=== PATIENT | female | born 1940 | race Caucasian/White ===

== ENCOUNTER → 2017-05-12 | Outpatient (CLI) | payer OTHER, BC ==
--- NOTE | 2017-05-12 16:05 | DI ---
CT LOWER EXTR W/O CONTRAST,05/12/2017 10:39 AM: Clinical History: Arthritis of the right knee Previous Exam: None at this facility. Findings: Multiple helically acquired CT images are obtained through the entire right lower trauma the without contrast. Evaluation of the right hip demonstrates anatomic alignment without fractures. The surrounding soft t issues are unremarkable. Evaluation of the right knee demonstrates a right knee joint effusion. Tricompartment osteophyte formation is noted. There is diffuse osteopenia. Subchondral cyst formation is also noted. The surrounding musculature and subcutaneous fat is unremarkable. There are few subchondral cysts. Evaluation of the right ankle demonstrates diffuse osteopenia. There are no significant degenerative changes there is some mild enthesopathy at the insertion of the Achilles tendon and the plantar fasci a. The subtalar joints appear to be normal. The intertarsal joints are also unremarkable. Impression: 1. Degenerative changes of the hip knee and ankle much worse at the knee joint where there is a knee joint effusion and tricompartmental osteophyte formation.
== END ==
LOC: CT 10:34
PROVIDERS: ATTEND Orthopaedic Surgery
DX: M17.0 Bilateral primary osteoarthritis of knee (principal); M25.461 Effusion, right knee
CPT/HCPCS: 73700

== ENCOUNTER 2017-06-20 10:13 | Inpatient (IN) ==
[~2017-06-20 10:13] MED LIST: Acetaminophen 1000mg Inj 1,000 MG/100 ML VIAL IV PRN; Clindamycin 900mg (Premix) 900 MG/50 ML BAG IV ONE; DEXAMETHASONE PF 10 MG/1 ML VIAL IVP PRN; DIAZEPAM 10 MG TABLET SL PRN; LIDOCAINE W/ SODIUM BICARB 0.5 ML SYR ONE; LIDOCAINE W/ SODIUM BICARB 0.5 ML SYR SUBCUT ONE; LORazepam 2 MG/1 ML VIAL IVP PRN; Lactated Ringers 1,000 ML PRIMARY IV ONE; ONDANSETRON 4 MG/2 ML VIAL IVP PRN; SCOPOLAMINE HYDROBROMIDE 1.5 MG - 1 EACH PATCH TRANSDERM PRN; ceFAZolin Inj 2gm (Premix) 2 GM/50 ML BAG IV ONE
[2017-06-20] MEDS: Lactated Ringers 1,000 ML PRIMARY IV SCH ×2 (11:13→22:12)
[2017-06-20] MEDS ORDERED: Bacteriostatic NaCl Inj 30ml Vial ONE (12:01)
[2017-06-20] MEDS ORDERED: Gentamicin Inj 40 MG/ML VIAL ONE ×2 (12:01→16:31)
[2017-06-20] MEDS ORDERED: Sodium Chloride 0.9% vial 10 ML ONE (12:01)
[2017-06-20] MEDS ORDERED: BUPivacaine Liposome/PF (Exparel) Inj 20ml vial INFIL ONE ×2 (12:01→12:47)
[2017-06-20 12:12] LABS: BILIRUBIN,URINE NEGATIVE (NEG); CLARITY,URINE CLEAR (CLEAR); COLOR,URINE YELLOW; GLUCOSE, URINE (UA) NEGATIVE (NEG); NITRATE,URINE NEGATIVE (NEG); OCCULT BLOOD,URINE Trace-intact (NEG); PROTEIN,URINE NEGATIVE (NEG); UROBILINOGEN,URINE 0.2 EU/dL (0.2)
[2017-06-20 12:23] LABS: SQUAMOUS EPITHELIAL CELL,UR RARE; URINE SAMPLE TYPE CLEAN CATCH URINE
[2017-06-20] MEDS ORDERED: LIDOCAINE W/ SODIUM BICARB 0.5 ML SYR SUBCUT ONE (12:30)
[2017-06-20] MEDS ORDERED: Lactated Ringers 1,000 ML PRIMARY IV SCH ×2 (12:30→14:30)
[2017-06-20] MEDS ORDERED: Clindamycin 900mg (Premix) 900 MG/50 ML BAG IV ONE (12:39)
[2017-06-20] MEDS ORDERED: Sodium Chloride 0.9% 0 ML ONE (12:44)
[2017-06-20] MEDS ORDERED: Sodium Chloride 0.9% 500 ML ONE (12:44)
[2017-06-20] MEDS ORDERED: BUPIVACAINE SPLASH ONE ×2 (12:45)
[2017-06-20] MEDS ORDERED: MORPHINE SPLASH ONE ×2 (12:45)
[2017-06-20] MEDS ORDERED: LIDOCAINE 2%/ EPI 1:200,000 - 20 ML VIAL ONE (12:55)
[2017-06-20] MEDS ORDERED: MIDAZOLAM 5 MG/1 ML ONE (12:55)
[2017-06-20] MEDS ORDERED: fentaNYL Inj 250 MCG/5 ML VIAL ONE (12:55)
[2017-06-20] MEDS ORDERED: BUPivacaine Inj 0.5% PF (5mg/ml) 30ml vial ONE (12:56)
[2017-06-20] MEDS ORDERED: Tranexamic Acid 1,000 MG in Sodium Chloride 0.9% 100 ML IV SCH (13:00)
[2017-06-20] MEDS ORDERED: Lactated Ringers 1,000 ML PRIMARY IV ONE (13:17)
[2017-06-20] MEDS ORDERED: SCOPOLAMINE HYDROBROMIDE 1.5 MG - 1 EACH PATCH TRANSDERM ONE (13:19)
[2017-06-20] MEDS ORDERED: LIDOCAINE MPF 2% - 5 ML (20 MG/1 ML) ONE (13:19)
[2017-06-20] MEDS ORDERED: Propofol 200 MG/20 ML VIAL IV ONE (13:19)
[2017-06-20] MEDS ORDERED: DEXAMETHASONE PF 10 MG/1 ML VIAL ONE (13:20)
[2017-06-20] MEDS ORDERED: ONDANSETRON 4 MG/2 ML VIAL ONE (13:20)
[2017-06-20] MEDS ORDERED: Sodium Chloride 0.9% vial 20 ML ONE (13:21)
[2017-06-20] MEDS ORDERED: BACITRACIN 50,000 UNIT VIAL IRRIG ONE (13:21)
[2017-06-20] MEDS ORDERED: TRANEXAMIC ACID 1,000 MG / 10 ML VIAL ONE (13:52)
[2017-06-20] MEDS ORDERED: Sodium Chloride 0.9% 200 ML IV ONE (13:53)
--- NOTE | 2017-06-20 14:22 | CRNA.PROCE ---
Nerve Block Documentation - - Type of Nerve Block Used: Right Sciatic Nerve Block Position for Nerve Block: Prone Moniters Used During Block: EKG, SPO2, NIBP Oxygen Sumpplented: Yes Sedation Used - Enter Amount in Comment Field [ANES.SEDAT]: Midazolam (mg): Yes (2mg), Fentanyl (mcg): Yes (100mcg) Skin Prep Used: ChloroPrep Draped: No Technique: Nerve Stimulator Nerve Block Needle Used: 80 mm ProBlk II Stimulation Hz: 2 Stimulation Staring mA: 1.4 Stimulation Ending mA: 0.4 Local Anesthetic - Enter Amt in Comment Field [ANES.LOCNB]: 0.5 % Bupivacaine Plain (mL): Yes (10ml), 2 % Xylocaine with Epinephrine 1:200,000 (mL): Yes (10ml ) Additives to Nerve Blocks: Dexamethasone (mg): Yes (1ml(4mg)) Anesthesia Time - Other Weight: 92.079 kg Height: 5 ft 3 in Body Mass Index (BMI): 35.9
[2017-06-20] MEDS ORDERED: Prochlorperazine Edisylate Inj 10mg/2ml vial IVP PRN (14:24)
[2017-06-20] MEDS ORDERED: HYDROmorphone 2 MG/1 ML IVP PRN ×2 (14:24→18:08)
--- NOTE | 2017-06-20 14:24 | CRNA.PROCE ---
Nerve Block Documentation - - Type of Nerve Block Used: Right Femoral Nerve Block Position for Nerve Block: Supine Moniters Used During Block: EKG, SPO2, NIBP Oxygen Sumpplented: Yes Sedation Used - Enter Amount in Comment Field [ANES.SEDAT]: Midazolam (mg): Yes (1mg), Fentanyl (mcg): Yes (50mcg) Skin Prep Used: ChloroPrep Draped: No Technique: Nerve Stimulator Nerve Block Needle Used: 80 mm ProBlk II Stimulation Hz: 2 Stimulation Staring mA: 1.4 Stimulation Ending mA: 0.4 Local Anesthetic - Enter Amt in Comment Field [ANES.LOCNB]: 0.5 % Bupivacaine Plain (mL): Yes (10ml), 2 % Xylocaine with Epinephrine 1:200,000 (mL): Yes (10ml ) Additives to Nerve Blocks: Dexamethasone (mg): Yes (1ml(4mg)) Anesthesia Time - Other Weight: 92.079 kg Height: 5 ft 3 in Body Mass Index (BMI): 35.9
--- NOTE | 2017-06-20 17:56 | CRNA.PROGR ---
Anesthesia Time - - Start date: 06/20/17 End date: 06/20/17 - Procedure/Recovery Time Anesthesia : Time In: 13:34 Anesthesia : Time Out: 17:35 Anesthesia : Total Time: 241 - Block Time PreOp Block : Time In: 13:04 PreOp Block : Time Out: 13:14 PreOp Block : Total Time: 10 - Total Anesthesia Time Total Anesthesia Time (minutes): 251 - Other Weight: 92.079 kg Height: 5 ft 3 in Body Mass Index (BMI): 35.9 Physical Status: P3 Pain Management: Sciatic Single Nerve Block (Fem/Sciatic combo)
[2017-06-20] MEDS ORDERED: ONDANSETRON 4 MG/2 ML VIAL IVP PRN ×2 (18:08)
[2017-06-20] MEDS ORDERED: CHOLECALCIFEROL 400 UNIT PO SCH (18:08)
[2017-06-20] MEDS ORDERED: OMEGA PO SCH (18:08)
[2017-06-20] MEDS ORDERED: MAG HYDROX/AL HYDROX/SIMETH 30 ML SUSP PO PRN (18:08)
[2017-06-20] MEDS ORDERED: BISACODYL 10 MG SUPPOSITORY RECTAL PRN (18:08)
[2017-06-20] MEDS ORDERED: Prochlorperazine Tab 10 MG TAB PO PRN (18:08)
[2017-06-20] MEDS ORDERED: FISH OIL PO SCH (18:08)
[2017-06-20] MEDS ORDERED: ACETAMINOPHEN 325 MG TABLET PO PRN (18:08)
[2017-06-20] MEDS ORDERED: SIMETHICONE PO SCH (18:08)
[2017-06-20] MEDS ORDERED: BISACODYL 5 MG TABLET PO PRN (18:08)
[2017-06-20] MEDS ORDERED: LOPERAMIDE HCL PO SCH (18:08)
[2017-06-20] MEDS ORDERED: OXYGEN ENOS SCH (18:08)
[2017-06-20] MEDS ORDERED: IBUPROFEN 400 MG TABLET PO PRN (18:08)
[2017-06-20] MEDS ORDERED: [UNRECOGNIZED DRUG - OTHER] PO SCH (18:08)
[2017-06-20] MEDS ORDERED: FATTY ACIDS PO SCH (18:08)
[2017-06-20] MEDS ORDERED: CALCIUM CARBONATE 500 MG (TUMS) CHEWABLE TABLET PO PRN (18:08)
[2017-06-20] MEDS ORDERED: diphenhydrAMINE 25 MG CAPSULE PO PRN (18:08)
[2017-06-20] MEDS ORDERED: Ondansetron ODT Tab 8 MG TAB PO PRN (18:08)
--- NOTE | 2017-06-20 19:53 | CONSULT ---
Consult Note - Consult Consult Date: 06/20/17 Reason for Consult: PostOp Consulation : Ortho Requesting Physician: Dr. Hugo Primary Care Provider: UNIQUE GUERRERO - History of Present Illness History of Present Illness: This is a 76 years old female with medical history significant for history of hypertension, peripheral neuropathy, history of colon cancer status post resection and chemotherapy, history of breast cancer status post bilateral mastectomies who came into the hospital to have surgery done because of right knee osteoarthritis and she had right total knee arthroplasty done by Dr. Hugo. The hospitalist service were consulted for management of medical issues, the patient currently is denying symptoms apart from feeling tired. she is denying nausea, shortness of breath, chest pain, knee pain. Past Medical History Medical History: 1. Hypertension. 2. Peripheral neuropathy secondary to chemotherapy. 3. History of colon cancer status post surgery and chemotherapy. 4. History of breast cancer status post post bilateral mastectomies. 5. History of hypoxia was on oxygen until a month ago. 6. Hypothyroidism. 7. Osteoporosis Surgical History: 1. History of colon surgery for colon cancer. 2. History of bilateral mastectomies. 3. History of appendectomy Family History: Reviewed an Not Pertinent Past Social History: Doesn't smoke, doesn't drink, no drugs. Lives with her in [place] Tobacco Use: Never Smoker In the Past 12 Months, Have Used or Abuse Any of the Following Substance: None Alcohol Use: None Review of Systems - Review of Systems All Systems: Reviewed & No Additional Complaints Except as Stated Medication / Allergies Home Medications: Home Medications Medication Instructions Recorded Confirmed Type Calcium Carbonate/Vitamin D3 1 each PO QD #1 01/28/13 06/20/17 History [Calcium 600 + Vitamin D Sftgl] Cholecalciferol (Vitamin D3) 400 unit PO QD #1 01/28/13 06/20/17 History [Vitamin D-400] Folic Acid 0.4 mg PO DAILY #1 tab 01/28/13 06/20/17 History Gluc/Amos-MSM#1/C/Malcolm/Jayme/Bor 1 each PO QD #1 01/28/13 06/20/17 History [Osteo Bi-Flex Caplet] Ibandronate Sodium 150 mg PO MONTHLY PRN #1 01/28/13 06/20/17 History [place]-3 Fatty Acids/Fish Oil [Fish 1 each PO QD #1 01/28/13 06/20/17 History Oil 1,200 Mg Softgel] Oxybutynin Chloride 5 mg PO QD #1 01/28/13 06/20/17 History Acetaminophen [Tylenol] 1 tab PO PRN tab 04/08/15 06/20/17 History Alendronate Sodium [Fosamax] 70 mg PO WEEKLY tab 04/08/15 History Amlodipine Besylate 1 tab PO DAILY tab 04/08/15 06/20/17 History Calcium Carbonate [Calcium] 1 tab PO BID tab 04/08/15 06/20/17 History Gabapentin 1 cap PO BID cap 04/08/15 06/20/17 History Levothyroxine Sodium 1 tab PO DAILY tab 04/08/15 06/20/17 History Loratadine [Claritin] 1 cap PO QD cap 04/08/15 06/20/17 History Lutein 20 mg PO TID tab 04/08/15 06/20/17 History Multivitamin [Multivitamins] 1 each PO QD cap 04/08/15 06/20/17 History Oxygen (O2) 1 l CARI QHS #2 unit 04/08/15 06/20/17 History Vit A,C & E/Lutein/Minerals 1 each PO QD tab 04/08/15 06/20/17 History [Ocuvite With Lutein Tablet] Benazepril HCl [Lotensin] 1 tab PO QD tab 01/27/16 06/20/17 History Loperamide HCl/Simethicone 2 tab PO PRN tab 01/27/16 06/20/17 History [Imodium Multi-Symptom Rel Cplt] Hydrocodone/Acetaminophen 1 - 2 tab PO Q4-6H PRN #50 tab 06/08/17 06/20/17 Clinic [Hydrocodon-Acetaminoph 7.5-325] Rivaroxaban [Xarelto] 1 tab PO QD #30 tab 06/08/17 06/20/17 Clinic Pyridoxine HCl [Vitamin B-6] 100 mg PO BID 06/20/17 06/20/17 History Allergies/Adverse Reactions: Allergies 3 Allergy/AdvReac Type Severity Reaction Status Date / Time naproxen Allergy Severe Anaphylaxis Verified 06/20/17 11:16 Sulfa (Sulfonamide Allergy Intermediate HIVES Verified 06/20/17 11:16 Antibiotics) Penicillins Allergy Mild RASH Verified 06/20/17 11:16 Tetanus Vaccines and Toxoid Allergy Mild RASH Verified 06/20/17 11:16 [Tetanus Vaccines & Toxoid] Exam - Vitals Vital Signs: Vital Signs Temperature 97.3 F Temperature Source Temporal Artery Scan Pulse Rate [Telemetry] 83 Respiratory Rate 14 Blood Pressure [right upper 137/95 arm] Blood Pressure [Left Arm] 120/73 Pulse Ox 96 Oxygen Flow Rate 3 liters Oxygen Delivery Method Nasal Cannula Height 5 ft 3 in Weight 203 lb - General General Appearance: No Acute Distress, Cooperative, Obese - Head Head Exam: Normal Inspection, Atraumatic - Eye Eye Exam: POSITIVE: Normal Appearance - ENT ENT Exam: POSITIVE: Normal Exam - Neck Neck Exam: Normal Inspection - Respiratory Respiratory Exam: POSITIVE: Clear to Auscultation - Bilaterally - Cardiovascular Cardiovascular Exam: POSITIVE: RRR - GI/Abdominal GI/Abdominal Exam: POSITIVE: Normal Bowel Sounds, Non Tender, Non Distended, Soft - Rectal Rectal Exam: POSITIVE: Deferred - External Exam: POSITIVE: Deferred Exam: POSITIVE: Deferred - Extremities Additional Extremities Exam Details: Dressing applied to the right knee - Neurological Neurological Exam: POSITIVE: Alert, Oriented x 3, CN II-XII Intact - Psychiatric Psychiatric Exam: POSITIVE: Normal Affect Assessment and Plan - Patient Problems (1) Status post total right knee replacement Current Visit: Yes Status: Acute Comment: Management. Dr. Hugo. He wrote for pain medications and also wrote for Xarelto for DVT prophylaxis. Aortic consult PT and OT. Code(s): Z96.651 - Presence of right artificial knee joint (2) Hypertension Current Visit: Yes Status: Acute Comment: Resume previous medication Code( s): I10 - Essential (primary) hypertension (3) Hypothyroidism Current Visit: Yes Status: Acute Comment: Same medications Code(s): E03.9 - Hypothyroidism, unspecified (4) Peripheral neuropathy Current Visit: Yes Status: Acute Comment: She is normally on gabapentin and multivitamins continue Code(s): G62.9 - Polyneuropathy, unspecified
[2017-06-20] MEDS ORDERED: PYRIDOXINE HCL 100 MG PO SCH (21:00)
[2017-06-20] MEDS ORDERED: VITAMIN E MIXED PO SCH (21:00)
[2017-06-20] MEDS: GABAPENTIN 300 MG CAPSULE PO SCH (21:10)
[2017-06-20] MEDS: Clindamycin 900mg (Premix) 900 MG/50 ML BAG IV SCH (21:15)
[2017-06-20] MEDS: DOCUSATE 100 MG CAPSULE PO SCH (21:43)
[2017-06-21] MEDS: HYDROcodone-APAP 7.5 MG-325 MG TABLET PO PRN ×4 (00:12→20:38)
[2017-06-21] MEDS: Clindamycin 900mg (Premix) 900 MG/50 ML BAG IV SCH ×2 (02:30→06:49)
[2017-06-21 05:12] LABS: Hematocrit [HCT] 41.9 % (37.0-47.0); Hemoglobin [HGB] 13.9 g/dL (12.0-16.0); MEAN CORPUSCULAR HEMOGLOBIN 31.7 PG (27-31); MEAN CORPUSCULAR HGB CONC 33.2 g/dL (33-37); MEAN CORPUSCULAR VOLUME 95.4 FL (81-99); MEAN PLATELET VOLUME 10.8 FL (7.4-12.2); RED BLOOD COUNT 4.39 10^6/uL (4.20-5.40)
[2017-06-21 05:24] LABS: BLOOD UREA NITROGEN 13 mg/dL (7-22); BUN/CREATININE RATIO 21.66 (6-20)
[2017-06-21] MEDS: Lactated Ringers 1,000 ML PRIMARY IV SCH ×3 (05:37→16:17)
[2017-06-21] MEDS: LEVOTHYROXINE 75 MCG TABLET PO SCH (06:49)
--- NOTE | 2017-06-21 08:28 | DI ---
XR KNEE 1 OR 2 VWS,06/20/2017 5:13 PM: Clinical History: Right total knee arthroplasty. Previous Exam: August 05, 2013 Findings: AP and lateral views of the right knee are obtained, and demonstrate postsurgical changes consistent with right total knee arthroplasty. Subcutaneous free air is noted. Overlying plaster is also seen. Impression: Status post right total knee arthroplasty. No fractures.
[2017-06-21] MEDS: Calcium/Vit D 600mg/400u Tab 1 TAB TABLET PO SCH (08:31)
[2017-06-21] MEDS: Rivaroxaban Tab 10 MG TAB PO SCH (08:31)
[2017-06-21] MEDS: GABAPENTIN 300 MG CAPSULE PO SCH ×5 (08:32→20:13)
[2017-06-21] MEDS: DOCUSATE 100 MG CAPSULE PO SCH ×2 (08:33→20:14)
[2017-06-21] MEDS: Multivitamin Tab 1 TAB PO SCH (08:33)
--- NOTE | 2017-06-21 08:46 | ORTHO.PROG ---
Last Taken Vital Signs: Vital Signs - Last Taken Temperature 97.2 F 06/21/17 06:53 Pulse Rate 82 06/21/17 06:53 Respiratory Rate 18 06/21/17 06:53 Blood Pressure 102/51 06/21/17 06:53 Pulse Ox 93 06/21/17 06:53 Subjective: Patient doing well block wearing off pain reasonably controlled on oral medications Objective: Dressing is clean and dry she has motor both in dorsiflexion and plantarflexion of the foot. Patient sensory exam seems to be good. Intake and Output - 8hrs 06/20/17 06/20/17 06/21/17 06/21/17 13:59 21:59 05:59 13:59 Intake: IV 2500 / 2500 Intake Oral Amount 50 / 50 1400 / 1400 Output: Output, Urinary Catheter 100 / 100 1100 / 1100 Amount Output, Urine Amount 300 / 300 900 / 900 Output, Estimated Blood 125 / 125 Loss Amount Other: Percent Meal Consumed Dinner 100% Number of Voids 1 Weight 92.079 kg 92.079 kg Weight Measurement Method Standing Scale CBC and BMP 06/21/17 04:17 06/21/17 04:17 Vital Signs (24 hrs) Temp Pulse Pulse Resp BP BP BP 06/21/17 06:53 97.2 F 82 18 102/51 06/21/17 04:23 06/21/17 04:11 97.2 F 82 18 125/67 06/20/17 23:52 97.5 F 93 17 105/84 06/20/17 21:00 97.7 F 79 16 108/66 06/20/17 20:00 97.4 F 80 20 108/60 06/20/17 19:00 97.4 F 78 20 114/50 06/20/17 18:40 97.3 F 77 77 20 107/62 107/62 06/20/17 18:01 83 14 120/73 137/95 06/20/17 17:56 83 14 120/73 139/80 06/20/17 17:51 84 16 120/73 149/77 06/20/17 17:46 87 16 120/73 146/81 06/20/17 17:41 97.3 F 86 16 120/73 135/81 06/20/17 17:36 87 15 120/73 154/87 06/20/17 17:31 98.3 F 93 15 151/83 06/20/17 11:28 98.8 F 78 14 120/73 Pulse Ox 06/21/17 06:53 93 06/21/17 04:23 93 06/21/17 04:11 96 06/20/17 23:52 94 06/20/17 21:00 97 06/20/17 20:00 96 06/20/17 19:00 92 06/20/17 18:40 98 06/20/17 18:01 96 06/20/17 17:56 94 06/20/17 17:51 97 06/20/17 17:46 97 06/20/17 17:41 97 06/20/17 17:36 94 06/20/17 17:31 94 06/20/17 11:28 Assessment: Right total knee replacement doing well Plan: Physical therapy and occupational therapy today. Pain control with oral medications and IV as needed. Start the patient on Xarelto 10 mg by mouth daily. Discussed with the patient importance of absolute nonweightbearing on the right leg for the first 72 hours knee immobilizer in place when she is being transferred were mobilized but no weight through the leg. Discussed leg will collapse if tries to put weight through this
[2017-06-21] MEDS ORDERED: Oxybutynin ER Tab 5 MG TAB PO SCH ×2 (09:00→21:00)
[2017-06-21] MEDS ORDERED: LORATADINE 10 MG TABLET PO PRN (09:00)
[2017-06-21] MEDS ORDERED: Beta Carot W/Vit E,C,Min Tab 1 TAB TAB PO SCH (09:00)
[2017-06-21] MEDS ORDERED: BENAZEPRIL 10 MG TABLET PO SCH (09:00)
[2017-06-21] MEDS ORDERED: AmLODIPine Tab 5 MG TABLET PO SCH (09:00)
[2017-06-21] MEDS ORDERED: Rivaroxaban Tab 10 MG TAB PO SCH (09:00)
--- NOTE | 2017-06-21 09:41 | CRNA.PROGR ---
Anesthesia Note - Progress Notes Anesthesia Progress Note: Post OP Anesthesia Note Pt is sitting up in bed, PT is in the room working with her. She states that her pain is well under control, and the the block is beginning to wear off. She has an appetite and has been able to tolerate a regular diet, she denies any n/v post op. She also denies any residual issues with the anesthetic. Current VS are stable. Vital Signs (Last 8 hours) Temp Pulse Resp BP BP Pulse Ox 06/21/17 06:53 97.2 F 82 18 102/51 93 06/21/17 04:23 93 06/21/17 04:11 97.2 F 82 18 125/67 96
[2017-06-21] MEDS: Oxybutynin ER Tab 5 MG TAB PO SCH ×2 (13:26→20:14)
--- NOTE | 2017-06-21 15:41 | PDOC(PROG) ---
Date and Time of Service: 06/21/2017, 1540 Interval History: No completes of chest pain, shortness breath, nausea or vomiting. Has not had bowel movement yet but has not had much to eat either. States that her knee pain is well controlled, maybe a 5/10. Objective : Data - Labs CBC and BMP: 06/21/17 04:17 06/21/17 04:17 Objective : Exam - General General Appearance: No Acute Distress, Cooperative Additional General Exam Details: Vital Signs - Last Taken Temperature 98.8 F 06/21/17 12:36 Pulse Rate 90 06/21/17 12:36 Respiratory Rate 18 06/21/17 12:36 Blood Pressure 90/49 06/21/17 12:36 Pulse Ox 93 06/21/17 12:36 - Eye Eye Exam: No Scleral Icterus - ENT ENT Exam: Mucous Membranes Moist - Respiratory Respiratory Exam: Clear to Auscultation - Bilaterally, Breathing Non Labored - Cardiovascular Cardiovascular Exam: RRR, No Murmur, No Clicks, No Gallops, No Rubs, No JVD - GI/Abdominal GI/Abdominal Exam: Normal Bowel Sounds, Non Tender, Non Distended, Soft - Extremities Extremities Exam: No Clubbing Present, No Edema Present, No Cyanosis Present Additional Extremities Exam Details: Knee is dressed, distal neurovascular is intact. - Neurological Neurological Exam: Alert, Oriented x 3, No Facial Droop, Speech Intact / Clear Assessment and Plan - Patient Problems (1) Hypertension Current Visit: Yes Status: Chronic Comment: Resume previous medication Code(s): I10 - Essential (primary) hypertension Qualifiers: Hypertension type: essential hypertension Qualified Code(s): I10 - Essential (primary) hypertension (2) Hypothyroidism Current Visit: Yes Status: Chronic Comment: Same medications Code(s): E03.9 - Hypothyroidism, unspecified Qualifiers: Hypothyroidism type: acquired Qualified Code(s): E03.9 - Hypothyroidism, unspecified (3) Peripheral neuropathy Current Visit: Yes Status: Acute Comment: She is normally on gabapentin and multivitamins continue Code(s): G62.9 - Polyneuropathy, unspecified Qualifiers: Peripheral neuropathy type: polyneuropathy, unspecified Qualified Code(s): G62.9 - Polyneuropathy, unspecified (4) History of colon cancer Current Visit: No Status: Resolved Code(s): Z85.038 - Personal history of other malignant neoplasm of large intestine (5) Status post total right knee replacement Current Visit: Yes Status: Acute Comment: Management. Dr. Hugo. He wrote for pain medications and also wrote for Xarelto for DVT prophylaxis. Aortic consult PT and OT. Code(s): Z96.651 - Presence of right artificial knee joint - Assessment / Plan Additional Assessment/Plan Details: No change in management of blood pressure, continue antihypertensives. Hopefully catheter out today. DVT prophylaxis as per orthopedics. PT and OT. Watch blood pressure. Systolic noted at 90. If patient is symptomatically, may benefit from some fluid boluses. Check H&H tomorrow
[2017-06-21] MEDS: LUTEIN PO SCH ×2 (16:22→20:13)
[2017-06-21] MEDS ORDERED: GABAPENTIN 300 MG CAPSULE PO SCH (16:30)
[2017-06-21] MEDS: VITAMIN B6 100 MG PO SCH (20:13)
[2017-06-21] MEDS: AmLODIPine Tab 5 MG TABLET PO SCH (20:22)
[2017-06-21] MEDS: BENAZEPRIL 10 MG TABLET PO SCH (20:22)
[2017-06-22] MEDS: HYDROcodone-APAP 7.5 MG-325 MG TABLET PO PRN ×5 (00:57→20:56)
[2017-06-22] MEDS: LEVOTHYROXINE 75 MCG TABLET PO SCH (04:39)
[2017-06-22 04:46] LABS: Hematocrit [HCT] 40.3 % (37.0-47.0); Hemoglobin [HGB] 13.4 g/dL (12.0-16.0); MEAN CORPUSCULAR HEMOGLOBIN 32.3 PG (27-31); MEAN CORPUSCULAR HGB CONC 33.3 g/dL (33-37); MEAN CORPUSCULAR VOLUME 97.1 FL (81-99); MEAN PLATELET VOLUME 10.1 FL (7.4-12.2); RED BLOOD COUNT 4.15 10^6/uL (4.20-5.40)
[2017-06-22 04:55] LABS: BLOOD UREA NITROGEN 17 mg/dL (7-22); BUN/CREATININE RATIO 24.28 (6-20)
--- NOTE | 2017-06-22 08:53 | PT.PROG ---
Progress Note Progress Note: PT - Samantha Bardales, SPT S: Marlyn reports feeling tired this afternoon, but otherwise she feels O.K. Marlyn reports feeling a burning sensation in her thigh and that she has not had ice up to this point since surgery. Marlyn agreed to PT today. O: Marlyn's ant. thigh was warm to touch. Prior to transfer, Marlyn's brace was secured. Marlyn was able to transfer to EOB with min assist and needed cuing to hook the non-affected extremity under the affected to assist in transferring. From seated pos. on EOB, Marlyn transferred to standing to AD with min assist. Marlyn needed cuing to use bed instead of AD to assist in transfer. Ther ex consisted of ambulation 20ft x 2 and static standing balance x 3 min. Marlyn was instructed to WBAT. Marlyn was returned to hospital bed and left with OT. A: SPT recommended ice application after therapy session to reduce palpable warmth of ant thigh. Marlyn tolerated therapy well today with minimal c/o pain. P: Continue as tolerated with current POC.
[2017-06-22] MEDS: DOCUSATE 100 MG CAPSULE PO SCH ×2 (10:15→20:57)
[2017-06-22] MEDS: Calcium/Vit D 600mg/400u Tab 1 TAB TABLET PO SCH (10:15)
[2017-06-22] MEDS: Multivitamin Tab 1 TAB PO SCH (10:15)
[2017-06-22] MEDS: Oxybutynin ER Tab 5 MG TAB PO SCH ×2 (10:16→20:56)
[2017-06-22] MEDS: GABAPENTIN 300 MG CAPSULE PO SCH ×3 (10:16→20:56)
[2017-06-22] MEDS: LUTEIN PO SCH ×3 (10:17→20:55)
[2017-06-22] MEDS: Rivaroxaban Tab 10 MG TAB PO SCH (10:17)
[2017-06-22] MEDS: VITAMIN B6 100 MG PO SCH ×2 (10:17→20:54)
[2017-06-22] MEDS: NORMAL SALINE 10 ML SYRINGE FLUSH IVP PRN (10:19)
--- NOTE | 2017-06-22 12:30 | PTI REPORT ---
Thank you for the referral of Marlyn Rodriguez. She was seen on 06/21/17 for an inpatient evaluation status post right total knee arthroplasty. SUBJECTIVE: The patient is a 76-year-old female. The patient repots that she feels tired and sore from surgery. The patient lives at home with her spouse. Her home environment is such that she lives in a single story house. There is one step to get to the living room and bathroom and one step to get into the house. The patient has a single point cane and walker available to her at home. The patient agrees to therapy today. PAST MEDICAL HISTORY: Past medical history can be found in the patient's medical record. OBJECTIVE FINDINGS: General observations: The patient was alert and oriented. The patient was sitting up in bed. She was not on any oxygen. Her resting blood pressure was 121/70 and her resting oxygen saturation was 93%. Pain: The patient repots a pain level of 3 to 4/10 on the verbal analog scale (0 =no pain, 10=worst pain); however, she is mostly numb due to the nerve block. Bed mobility: The patient was able to transfer to sitting edge of bed with moderate assistance. The patient demonstrated good static and dynamic balance. Her blood pressure when sitting edge of bed was 113/63. Transfers: The patient required moderate assistance to transfer from sit to stand to a walker. The patient was able to stand x2 minutes. The patient's blood pressure while standing was 118/68. Ambulation: The patient was able to ambulate 20 feet with standard walker and min A x 1 to the hospital room door and back to a chair. ASSESSMENT: Problem List: Pain in the right knee Decreased passive and active range of motion in the right knee Decreased strength in the right knee Short-Term Goals: To be met by discharge from inpatient: Patient will be able to transfer from bed to stand independently. Patient will be able to ambulate 100 feet with walker, weight-bearing as tolerated. Patient will be able to ascend and descend five stairs with walker, weight- bearing as tolerated. Patient will be instructed in an independent home exercise and stretching program. Long-Term Goals: To be met following discharge from inpatient: Patient will be seen by outpatient physical therapy. TREATMENT PLAN: Patient will be seen B.I.D during the week and one time per day over the weekend as an inpatient to address the above goals and objectives. INITIAL TREATMENT: Treatment today consisted of the initial evaluation followed by the patient performing exercises in long sitting position including glut sets, quad sets, and ankle flickers. The patient ambulated 20 feet and was left in chair with chair alarm on. Dictated by: TAMIE Whitehead Supervised by: MAVIS Bourne
[2017-06-22] MEDS ORDERED: MAGNESIUM 400 MG/5 ML - 30 ML (MILK OF MAGNESIA) PO ONE (13:58)
[2017-06-22] MEDS ORDERED: Fleet Enema w/Mineral Oil 133ml RECTAL PRN (13:59)
--- NOTE | 2017-06-22 14:03 | PDOC(PROG) ---
Date and Time of Service: 06/22/2017, 1402 Interval History: No complaints of chest pain, shortness breath, nausea or vomiting. Pain is well controlled and knee. Patient is working very hard with physical therapy. They told me she is a model patient. The patient does note that she has some constipation. She's not had a bowel movement yet. Stool softeners have been utilized. No syncopal symptoms no dizziness and lightheadedness Objective : Data - Labs CBC and BMP: 06/22/17 04:41 06/22/17 04:41 Objective : Exam - General General Appearance: No Acute Distress, Cooperative Additional General Exam Details: Vital Signs - Last Taken Temperature 97.9 F 06/22/17 11:33 Pulse Rate 82 06/22/17 11:33 Respiratory Rate 18 06/22/17 11:33 Blood Pressure 110/72 06/22/17 11:33 Pulse Ox 94 06/22/17 11:33 - Eye Eye Exam: No Scleral Icterus - ENT ENT Exam: Mucous Membranes Moist - Respiratory Respiratory Exam: Clear to Auscultation - Bilaterally, Breathing Non Labored - Cardiovascular Cardiovascular Exam: RRR, No Murmur, No Clicks, No Gallops, No Rubs, No JVD - GI/Abdominal GI/Abdominal Exam: Normal Bowel Sounds, Non Tender, Non Distended, Soft - Extremities Extremities Exam: No Clubbing Present, No Cyanosis Present Additional Extremities Exam Details: Some lower extremity edema on the right side, expected post knee surgery. No tenderness in calf. Assessment and Plan - Patient Problems (1) Hypertension Current Visit: Yes Status: Chronic Comment: Resume previous medication Code(s): I10 - Essential (primary) hypertension Qualifiers: Hypertension type: essential hypertension Qualified Code(s): I10 - Essential (primary) hypertension (2) Hypothyroidism Current Visit: Yes Status: Chronic Comment: Same medications Code(s): E03.9 - Hypothyroidism, unspecified Qualifiers: Hypothyroidism type: acquired Qualified Code(s): E03.9 - Hypothyroidism, unspecified (3) Peripheral neuropathy Current Visit: Yes Status: Acute Comment: She is normally on gabapentin and multivitamins continue Code(s): G62.9 - Polyneuropathy, unspecified Qualifiers: Peripheral neuropathy type: polyneuropathy, unspecified Qualified Code(s): G62.9 - Polyneuropathy, unspecified (4) Status post total right knee replacement Current Visit: Yes Status: Acute Comment: Management. Dr. Hugo. He wrote for pain medications and also wrote for Xarelto for DVT prophylaxis. Aortic consult PT and OT. Code(s): Z96.651 - Presence of right artificial knee joint - Assessment / Plan Additional Assessment/Plan Details: The patient has had some hypotension, we held some blood pressure medications last night. Blood pressures are much more normalized and patient seems to get better readings with manual cuffs overdoing manual blood pressures. Asymptomatic. Continue PT and OT. On Xarelto for DVT prophylaxis. Will add milk of magnesia and enemas if necessary.
--- NOTE | 2017-06-22 14:15 | ORTHO.PROG ---
Last Taken Vital Signs: Vital Signs - Last Taken Temperature 97.9 F 06/22/17 11:33 Pulse Rate 82 06/22/17 11:33 Respiratory Rate 18 06/22/17 11:33 Blood Pressure 110/72 06/22/17 11:33 Pulse Ox 94 06/22/17 11:33 Subjective: Patient doing well pain is reasonably well controlled and is progressing slowly with therapy. Objective: Dressing is clean and dry. Motor and sensory exam is intact except peripheral neuropathy symmetric right equal to left the lower extremities and hands. Good pulses brisk refill. No calf, popliteal, adductor hiatus or thigh pain. CBC and BMP 06/22/17 04:41 06/22/17 04:41 Vital Signs (24 hrs) Temp Pulse Resp BP BP BP Pulse Ox 06/22/17 11:33 97.9 F 82 18 110/72 94 06/22/17 08:50 98.2 F 86 18 138/85 93 06/22/17 05:09 93 06/22/17 04:00 97.6 F 81 18 110/76 93 06/22/17 00:46 97.8 F 84 20 120/68 95 06/21/17 20:56 98.0 F 85 18 110/64 91 06/21/17 20:00 117/55 06/21/17 17:00 112/52 06/21/17 16:51 98.7 F 82 16 83/48 91 Assessment: Right total knee replacement doing well Plan: Continue with current plan. Physical therapy and occupational therapy to continue. Pain control and deep vein thromboses prophylaxis
--- NOTE | 2017-06-22 15:14 | PT AM DAY ---
Diagnosis : Right Total Knee Arthroplasty AM - Physical Therapy S: The patient reports no new changes. O: The patient was brought to the therapy department by OT. She received an application of moist heat pack x20 minutes to the right knee. She performed open chain exercises, close chain sit to stand, and functional transfers. The patient ambulated up to 100 feet with the use of a walker and verbal encouragement. She also was able to manage two or three steps with verbal cueing; she was a little confused at times about which leg to use first. A: The patient does live with her at home and he is there 08/05. She has one step to manage in her home. At this point she is very close to achieving her inpatient goals for physical therapy. The patient should be ready for discharge soon. P: Continue seeing patient BID during the week and one time per day over the weekend until discharge. JAVIERD
[2017-06-22] MEDS: MAGNESIUM 400 MG/5 ML - 30 ML (MILK OF MAGNESIA) PO SCH (20:55)
[2017-06-22] MEDS: AmLODIPine Tab 5 MG TABLET PO SCH (20:57)
[2017-06-22] MEDS: BENAZEPRIL 10 MG TABLET PO SCH (20:58)
[2017-06-23] MEDS: HYDROcodone-APAP 7.5 MG-325 MG TABLET PO PRN ×5 (01:29→23:27)
[2017-06-23 04:43] LABS: Hemoglobin [HGB] 12.4 g/dL (12.0-16.0); MEAN CORPUSCULAR HEMOGLOBIN 31.9 PG (27-31); MEAN CORPUSCULAR HGB CONC 32.6 g/dL (33-37); MEAN CORPUSCULAR VOLUME 97.7 FL (81-99); MEAN PLATELET VOLUME 10.6 FL (7.4-12.2); RED BLOOD COUNT 3.89 10^6/uL (4.20-5.40)
[2017-06-23 04:57] LABS: BLOOD UREA NITROGEN 16 mg/dL (7-22); BUN/CREATININE RATIO 26.66 (6-20)
[2017-06-23] MEDS: LEVOTHYROXINE 75 MCG TABLET PO SCH (05:32)
[2017-06-23] MEDS: VITAMIN B6 100 MG PO SCH ×2 (08:22→21:00)
[2017-06-23] MEDS: LUTEIN PO SCH ×3 (08:22→21:00)
[2017-06-23] MEDS: GABAPENTIN 300 MG CAPSULE PO SCH ×3 (08:22→20:59)
[2017-06-23] MEDS: Multivitamin Tab 1 TAB PO SCH (08:23)
[2017-06-23] MEDS: Calcium/Vit D 600mg/400u Tab 1 TAB TABLET PO SCH (08:23)
[2017-06-23] MEDS: Rivaroxaban Tab 10 MG TAB PO SCH (08:24)
[2017-06-23] MEDS: DOCUSATE 100 MG CAPSULE PO SCH ×2 (08:24→20:59)
[2017-06-23] MEDS: Oxybutynin ER Tab 5 MG TAB PO SCH ×2 (08:24→20:58)
[2017-06-23] MEDS: NORMAL SALINE 10 ML SYRINGE FLUSH IVP PRN (08:25)
[2017-06-23] MEDS: MAGNESIUM 400 MG/5 ML - 30 ML (MILK OF MAGNESIA) PO SCH ×2 (08:28→20:56)
--- NOTE | 2017-06-23 09:22 | PDOC(PROG) ---
Date and Time of Service: 06/23/2017, 920 Interval History: No chest pain. No trouble breathing. Had bowel movement. The pain is fairly well-controlled in the knee caused a 5-6/10. Ambulating well with therapy and walker. Objective : Data - Labs CBC and BMP: 06/23/17 04:14 06/23/17 04:14 Objective : Exam - General General Appearance: No Acute Distress, Cooperative Additional General Exam Details: Vital Signs - Last Taken Temperature 97.0 F 06/23/17 08:47 Pulse Rate 78 06/23/17 08:47 Respiratory Rate 16 06/23/17 08:47 Blood Pressure 107/60 06/23/17 08:47 Pulse Ox 93 06/23/17 08:47 - Eye Eye Exam: No Scleral Icterus - ENT ENT Exam: Mucous Membranes Moist - Respiratory Respiratory Exam: Clear to Auscultation - Bilaterally, Breathing Non Labored - Cardiovascular Cardiovascular Exam: RRR, No Murmur, No Clicks, No Gallops, No Rubs, No JVD - GI/Abdominal GI/Abdominal Exam: Normal Bowel Sounds, Non Tender, Non Distended, Soft - Extremities Extremities Exam: No Clubbing Present, No Edema Present, No Cyanosis Present Additional Extremities Exam Details: Incision is dressed, dressing is clean, dry, intact. No calf tenderness. - Neurological Neurological Exam: Alert, Oriented x 3, No Facial Droop, Speech Intact / Clear, Moves All Extremities Equally Additional Neurological Exam Details: Gait with standby assist with walker looks good. - Psychiatric Psychiatric Exam: Normal Affect, Normal Mood Assessment and Plan - Patient Problems (1) Hypertension Current Visit: Yes Status: Chronic Comment: Resume previous medication Code(s): I10 - Essential (primary) hypertension Qualifiers: Hypertension type: essential hypertension Qualified Code(s): I10 - Essential (primary) hypertension (2) Hypothyroidism Current Visit: Yes Status: Chronic Comment: Same medications Code(s): E03.9 - Hypothyroidism, unspecified Qualifiers: Hypothyroidism type: acquired Qualified Code(s): E03.9 - Hypothyroidism, unspecified (3) Peripheral neuropathy Current Visit: Yes Status: Acute Code(s): G62.9 - Polyneuropathy, unspecified Qualifiers: Peripheral neuropathy type: polyneuropathy, unspecified Qualified Code(s): G62.9 - Polyneuropathy, unspecified (4) Status post total right knee replacement Current Visit: Yes Status: Acute Code(s): Z96.651 - Presence of right artificial knee joint - Assessment / Plan Additional Assessment/Plan Details: From my standpoint, resume home medications as prior to surgery. Patient is doing well from a medical standpoint and would be okay to discharge him hospitalist standpoint. Recommend follow-up with primary care provider within 7 days of discharge. I discussed that with her.
--- NOTE | 2017-06-23 10:21 | OTI REPORT ---
Thank you for the referral of Marlyn Rodriguez. She was seen on 06/22/17 for an occupational therapy inpatient evaluation status post right total knee arthroplasty. SUBJECTIVE: The patient is a 76-year-old female who is being seen today secondary to having a right total knee arthroplasty. The patient does live at home with her spouse. She states that she has no stairs getting into her home. She has one step to get into her door, one step into her living room, and one step into the bathroom. There are no rails besides the living room and bathroom step. Her bathroom is set up with a shower chair, a hand held shower hose, a raised toilet seat, and a grab bar by the toilet seat. The patient has a bathtub in the bathroom. She has a standard bed, standard walker, and single point cane. The patient states that she and her share the home duties of laundry, cooking, cleaning, and grocery shopping and her mainly does the driving. She reprts that she does have neuropathy in both feet. PAST MEDICAL HISTORY: Past medical history can be found in the patient's medical record. OBJECTIVE FINDINGS: Activities of daily living: Today the patient was assessed on abilities to dress self. She was dependent with her socks and shorts. She was only getting approximately 60 degrees of bend in her knee. The patient was able to don clothes with use of supervisor plasma with verbal cues and min assist. She did state that the supervisor plasma helped her quite immensely. The patient was also issued a sock aide. The patient was able to doff her socks with supervisor plasma with min assist and don socks with sock aide, verbal cues, and min assist. The patient was able to stand to pull pants up to waist with min to mod assist for balance. The patient did have difficulty keeping her balance without hands on the walker. The patient was also issued a bath sponge as well as a long handled shoe horn to increase her independence. ASSESSMENT: The patient would benefit from at least one more session of occupational therapy to address use of adaptive equipment, to make sure that she can keep her balance while standing and donning lower extremity clothes, and to make sure that she has good balance while completing ADLs in a standing position. Short-Term Goals: To be met by discharge from inpatient: Patient will be able to dress self independently with use of adaptive equipment. Patient will be able to complete a toilet transfer with stand by assist. Patient will be able to complete morning hygiene activities while in a standing position without loss of balance. Long-Term Goals: To be met following discharge from inpatient: Patient will be discharged to home, demonstrating independence and safety with all activities of daily living. TREATMENT PLAN: Patient will be seen B.I.D during the week and one time per day over the weekend as an inpatient to address the above goals and objectives. INITIAL TREATMENT: Treatment today consisted of the initial evaluation followed by instruction and demonstration of use of adaptive equipment for safety and independence at home. DAT
--- NOTE | 2017-06-23 14:16 | PT PM DAY ---
Diagnosis : RIGHT TKA PM - Physical Therapy S: Patient reports no new changes today. O: Patient was seen in PT today, she needed assist of 1 from supine to sit or standby assist of 1. Patient ambulated about 100 feet before fatiguing. She demonstrates range of motion from about 0 to 90 degrees of knee flexion. A: Patient had a little more discomfort this afternoon than this morning. She was able to tolerate her therapy activities well. Patient still seems a little confused sometimes with responses to questions and/or requests. P: Continue seeing patient BID during the week and one time per day over the weekend for transfers, ambulation, and range of motion/strengthening exercises. DAT
[2017-06-23] MEDS: BENAZEPRIL 10 MG TABLET PO SCH (20:58)
[2017-06-23] MEDS: AmLODIPine Tab 5 MG TABLET PO SCH (20:59)
[2017-06-24] MEDS: LEVOTHYROXINE 75 MCG TABLET PO SCH (05:36)
[2017-06-24] MEDS: HYDROcodone-APAP 7.5 MG-325 MG TABLET PO PRN ×3 (05:37→13:33)
[2017-06-24 07:09] VITALS: RESP 16
[2017-06-24] MEDS: MAGNESIUM 400 MG/5 ML - 30 ML (MILK OF MAGNESIA) PO SCH (08:25)
[2017-06-24] MEDS: LUTEIN PO SCH (08:26)
[2017-06-24] MEDS: VITAMIN B6 100 MG PO SCH (08:26)
[2017-06-24] MEDS: GABAPENTIN 300 MG CAPSULE PO SCH (08:27)
[2017-06-24] MEDS: Oxybutynin ER Tab 5 MG TAB PO SCH (08:27)
[2017-06-24] MEDS: Calcium/Vit D 600mg/400u Tab 1 TAB TABLET PO SCH (08:28)
[2017-06-24] MEDS: Rivaroxaban Tab 10 MG TAB PO SCH (08:28)
[2017-06-24] MEDS: Multivitamin Tab 1 TAB PO SCH (08:28)
[2017-06-24] MEDS: DOCUSATE 100 MG CAPSULE PO SCH (08:28)
--- NOTE | 2017-06-24 11:11 | PT.PROG ---
Progress Note Progress Note: S. Patient stated that she is very sore this morning, however she is feeling a little better overall. O. Patient ambulated 70 feet to the wheelchair and was wheeled to the therapy gym where she had heat and edema massage to decrease swelling, then performed exercises in the form of; heel slides, quad sets, ankle pumps, straight leg raises, hip abduction/adduction, short arc quads, and long arc quads all x 10, then performed sit to stands x 7 then ambulated 90 feet to the wheelchair and was returned to her room where she was left in the restroom and nursing was notified. A. Patient tolerated therapy well this morning she continues to have soreness and stiffness however is gaining mobility and strength, she would continue to benefit from skilled therapy to increase endurance and mobility. P. Continue POC.
--- NOTE | 2017-06-24 13:16 | DCSUMMARY ---
Hospitalization Summary Admit Date: 06/20/17 Discharge Date: 06/24/17 Primary Diagnosis:: status post right knee replacement Secondary Diagnosis:: Weakness and deconditioning. Hospital Course: This very pleasant 76-year-old female who presented here on the fifth for a right total knee replacement. That was done by Dr. Hugo, see his surgical note. Patient is done well with therapy, but continues to have PT and OT needs. She lives in [place], [place], and feels that it would be best for her situation based on her resources at home to continue some therapy here for at least the next few days before going home. She recovered well from a medical standpoint as well in her medical issues really did not have problems during the hospital stay except for some isolated hypertension that was asymptomatic and resolved. Today, no completes of chest pain, no shortness of breath, no nausea or vomiting. Knee pain is controlled. Assessment and Plan: 1. As per discharge assessments noted 2. Disposition: Patient is discharged to swing bed 3. Condition on discharge, stable and improved. 4. Diet: regular diet 5. Activities: As per Dr. Hugo and PT and OT 6. Follow-Up: 1. Hospitalist service will follow patient care 2. 7. Medications at the Time of Discharge: Home Medications Medication Instructions Recorded Confirmed Type Calcium Carbonate/Vitamin D3 1 ea PO QD #1 01/28/13 06/20/17 History [Calcium 600-Vit D3 500 Softgel] Cholecalciferol (Vitamin D3) 400 unit PO QD #1 01/28/13 06/20/17 History [Vitamin D-400] Folic Acid 0.4 mg PO DAILY #1 tab 01/28/13 06/20/17 History Gluc/Amos-MSM#1/C/Malcolm/Jayme/Bor 1 ea PO QD #1 01/28/13 06/20/17 History [Osteo Bi-Flex Caplet] Ibandronate Sodium 150 mg PO MONTHLY PRN #1 01/28/13 06/20/17 History Wiggins-3 Fatty Acids/Fish Oil [Fish 1 ea PO QD #1 01/28/13 06/20/17 History Oil 1,200 mg Softgel] Oxybutynin Chloride 5 mg PO BID #1 01/28/13 06/21/17 History Acetaminophen [Tylenol] 1 tab PO PRN tab 04/08/15 06/20/17 History Alendronate Sodium [Fosamax] 70 mg PO WEEKLY tab 04/08/15 History Amlodipine Besylate 1 tab PO DAILY tab 04/08/15 06/20/17 History Calcium Carbonate [Calcium] 1 tab PO BID tab 04/08/15 06/20/17 History Gabapentin 1 cap PO BID cap 04/08/15 06/20/17 History Levothyroxine Sodium 1 tab PO DAILY tab 04/08/15 06/20/17 History Loratadine [Claritin] 1 cap PO QD cap 04/08/15 06/20/17 History Lutein 20 mg PO TID tab 04/08/15 06/20/17 History Multivitamin [Multivitamins] 1 ea PO QD cap 04/08/15 06/20/17 History Oxygen (O2) 1 l CARI QHS #2 unit 04/08/15 06/20/17 History Vit A,C & E/Lutein/Minerals 1 ea PO QD tab 04/08/15 06/20/17 History [Ocuvite with Lutein Tablet] Benazepril HCl [Lotensin] 1 tab PO QD tab 01/27/16 06/20/17 History Hydrocodone/Acetaminophen 1 - 2 tab PO Q4-6H PRN #50 tab 06/08/17 06/20/17 Clinic [Hydrocodon-Acetaminoph 7.5-325] Rivaroxaban [Xarelto] 1 tab PO QD #30 tab 06/08/17 06/20/17 Clinic Pyridoxine HCl [Vitamin B-6] 100 mg PO BID 06/20/17 06/20/17 History Docusate Sodium [Colace] 100 mg PO BID #60 cap 06/23/17 Rx HYDROcodone/APAP 7.5/325 Tab 1 - 2 tab PO Q4H PRN #60 tab 06/23/17 Rx [Raysal 7.5/325 Tab] Rivaroxaban [Xarelto] 10 mg PO DAILY #10 tab 06/23/17 Rx 8. Time, care, counseling and coordination of care for this discharge is less than 30 minutes. Exam - Vitals Vital Signs: Vital Signs Height 5 ft 3 in Weight 211 lb 6.4 oz Vital Signs - Last Taken Temperature 97.2 F 06/24/17 07:07 Pulse Rate 88 06/24/17 07:07 Respiratory Rate 16 06/24/17 07:07 Blood Pressure 118/58 06/24/17 07:34 Pulse Ox 95 06/24/17 07:07 - General General Appearance: No Acute Distress, Cooperative - Eye Eye Exam: POSITIVE: No Scleral Icterus - ENT ENT Exam: POSITIVE: Mucous Membranes Moist - Respiratory Respiratory Exam: POSITIVE: Clear to Auscultation - Bilaterally, Breathing Non Labored - Cardiovascular Cardiovascular Exam: POSITIVE: RRR, No Murmur, No Clicks, No Gallops, No Rubs, No JVD - GI/Abdominal GI/Abdominal Exam: POSITIVE: Normal Bowel Sounds, Non Tender, Non Distended, Soft - Extremities Extremities Exam: POSITIVE: No Clubbing Present, No Edema Present, No Cyanosis Present Additional Extremities Exam Details: Some of the swelling on right lower extremity I think has decreased. No Tenderness in the calf - Neurological Neurological Exam: POSITIVE: Alert, Oriented x 3, No Facial Droop, Speech Intact / Clear - Psychiatric Psychiatric Exam: POSITIVE: Normal Affect, Normal Mood Data Perinent Studies: Laboratory Results 06/20/17 06/20/17 06/21/17 Range/Units 11:30 12:09 04:17 WBC 10.30 (4.8-10.8) 10^3/uL RBC 4.39 (4.20-5.40) 10^6/uL Hgb 13.9 (12.0-16.0) g/dL Hct 41.9 (37.0-47.0) % MCV 95.4 (81-99) FL MCH 31.7 H (27-31) PG MCHC 33.2 (33-37) g/dL RDW Std Deviation 44.9 (39-50) fL RDW Coeff of Srikanth 13.3 (11.5-14.5) % Plt Count 208 (140-350) 10*3/uL MPV 10.8 (7.4-12.2) FL Sodium (135-145) meq/L Potassium (3.8-5.2) meq/L Chloride (98-112) meq/L Carbon Dioxide (23-33) meq/L Anion Gap (5-20) BUN (7-22) mg/dL Creatinine (0.50-1.20) mg/dL BUN/Creatinine Ratio (6-20) Glucose (78-110) mg/dL Calculated Osmolality (267-292) mOsm/kg Calcium (8.7-10.7) mg/dL Ur Collection Type Clean catch urine Urine Color Yellow Urine Clarity Clear (CLEAR) Urine pH 6.0 (5.0-8.5) Ur Specific [place] 1.015 (1.005-1.030) Urine Protein Negative (NEG) mg/dl Urine Glucose (UA) Negative (NEG) mg/dL Urine Ketones 15 (NEG) Urine Occult Blood Trace-intact H (NEG) Urine Nitrate Negative (NEG) Urine Bilirubin Negative (NEG) Urine Urobilinogen 0.2 (0.2) EU/dL Ur Leukocyte Esterase Negative (NEG) Urine RBC None (NONE) /hpf Urine WBC None (NONE) Ur Squamous Epith Cells Rare (NONE) Ur Renal Epithelial Cell None (NONE) Urine Crystals None Urine Bacteria None (NONE) Urine Casts None (NONE) Urine Mucus None (NONE) Urine Trichomonas None (NONE) Urine Yeast None (NONE) Blood Type O POSITIVE Antibody Screen Negative 06/21/17 06/22/17 06/22/17 Range/Units 04:17 04:41 04:41 WBC 13.70 H (4.8-10.8) 10^3/uL RBC 4.15 L (4.20-5.40) 10^6/uL Hgb 13.4 (12.0-16.0) g/dL Hct 40.3 (37.0-47.0) % MCV 97.1 (81-99) FL MCH 32.3 H (27-31) PG MCHC 33.3 (33-37) g/dL RDW Std Deviation 47.7 (39-50) fL RDW Coeff of Srikanth 13.8 (11.5-14.5) % Plt Count 192 (140-350) 10*3/uL MPV 10.1 (7.4-12.2) FL Sodium 137 141 (135-145) meq/L Potassium 4.6 3.8 (3.8-5.2) meq/L Chloride 103 106 (98-112) meq/L Carbon Dioxide 23 28 (23-33) meq/L Anion Gap 11 7 (5-20) BUN 13 17 (7-22) mg/dL Creatinine 0.6 0.7 (0.50-1.20) mg/dL BUN/Creatinine Ratio 21.66 H 24.28 H (6-20) Glucose 187 H 131 H (78-110) mg/dL Calculated Osmolality 288.0 295.0 H (267-292) mOsm/kg Calcium 9.3 9.0 (8.7-10.7) mg/dL Ur Collection Type Urine Color Urine Clarity (CLEAR) Urine pH (5.0-8.5) Ur Specific [place] (1.005-1.030) Urine Protein (NEG) mg/dl Urine Glucose (UA) (NEG) mg/dL Urine Ketones (NEG) Urine Occult Blood (NEG) Urine Nitrate (NEG) Urine Bilirubin (NEG) Urine Urobilinogen (0.2) EU/dL Ur Leukocyte Esterase (NEG) Urine RBC (NONE) /hpf Urine WBC (NONE) Ur Squamous Epith Cells (NONE) Ur Renal Epithelial Cell (NONE) Urine Crystals Urine Bacteria (NONE) Urine Casts (NONE) Urine Mucus (NONE) Urine Trichomonas (NONE) Urine Yeast (NONE) Blood Type Antibody Screen 06/23/17 06/23/17 Range/Units 04:14 04:14 WBC 11.46 H (4.8-10.8) 10^3/uL RBC 3.89 L (4.20-5.40) 10^6/uL Hgb 12.4 (12.0-16.0) g/dL Hct 38.0 (37.0-47.0) % MCV 97.7 (81-99) FL MCH 31.9 H (27-31) PG MCHC 32.6 L (33-37) g/dL RDW Std Deviation 49.1 (39-50) fL RDW Coeff of Srikanth 14.0 (11.5-14.5) % Plt Count 188 (140-350) 10*3/uL MPV 10.6 (7.4-12.2) FL Sodium 138 (135-145) meq/L Potassium 4.2 (3.8-5.2) meq/L Chloride 105 (98-112) meq/L Carbon Dioxide 25 (23-33) meq/L Anion Gap 8 (5-20) BUN 16 (7-22) mg/dL Creatinine 0.6 (0.50-1.20) mg/dL BUN/Creatinine Ratio 26.66 H (6-20) Glucose 133 H (78-110) mg/dL Calculated Osmolality 288.0 (267-292) mOsm/kg Calcium 8.7 (8.7-10.7) mg/dL Ur Collection Type Urine Color Urine Clarity (CLEAR) Urine pH (5.0-8.5) Ur Specific [place] (1.005-1.030) Urine Protein (NEG) mg/dl Urine Glucose (UA) (NEG) mg/dL Urine Ketones (NEG) Urine Occult Blood (NEG) Urine Nitrate (NEG) Urine Bilirubin (NEG) Urine Urobilinogen (0.2) EU/dL Ur Leukocyte Esterase (NEG) Urine RBC (NONE) /hpf Urine WBC (NONE) Ur Squamous Epith Cells (NONE) Ur Renal Epithelial Cell (NONE) Urine Crystals Urine Bacteria (NONE) Urine Casts (NONE) Urine Mucus (NONE) Urine Trichomonas (NONE) Urine Yeast (NONE) Blood Type Antibody Screen Radiology studies: [address] [facility] [facility] [place] [address] PH: DD: [phone] FAX: [phone] ~DIAGNOSTIC IMAGING REPORT~ Patient: ANAID CHAVEZ : 1940 Sex: F Age: 76 Exam Name: XR KNEE 1 OR 2 VWS Exam Date: 06/20/17 Report # : [id number] CPT Code: 49070 EMR/MR #: [id number] Ordering: SUNDAR HUGO Admiting: Sundar Hugo MD. Primary: UNIQUE GUERRERO MD Attending: Sundar Hugo MD. Signed XR KNEE 1 OR 2 VWS,06/20/2017 5:13 PM: Clinical History: Right total knee arthroplasty. Previous Exam: August 05, 2013 Findings: AP and lateral views of the right knee are obtained, and demonstrate postsurgical changes consistent with right total knee arthroplasty. Subcutaneous free air is noted. Overlying plaster is also seen. Impression: Status post right total knee arthroplasty. No fractures. Dictated By: 06/21/17 0822 HENRY ALDANA MD. Signed By: 06/21/17 0828 HENRY ALDANA MD. Patient Problems - Patient Problem List (1) Status post total right knee replacement Current Visit: Yes Status: Acute Code(s): Z96.651 - Presence of right artificial knee joint Category: Medical (2) Hypertension Current Visit: Yes Status: Chronic Comment: Resume previous medication Code(s): I10 - Essential (primary) hypertension Qualifiers: Hypertension type: essential hypertension Qualified Code(s): I10 - Essential (primary) hypertension Category: Medical (3) Hypothyroidism Current Visit: Yes Status: Chronic Comment: Same medications Code(s): E03.9 - Hypothyroidism, unspecified Qualifiers: Hypothyroidism type: acquired Qualified Code(s): E03.9 - Hypothyroidism, unspecified Category: Medical (4) Peripheral neuropathy Current Visit: Yes Status: Acute Code(s): G62.9 - Polyneuropathy, unspecified Qualifiers: Peripheral neuropathy type: polyneuropathy, drug-induced Qualified Code(s) : G62.0 - Drug-induced polyneuropathy Category: Medical
[2017-06-24 13:32] VITALS: BP 124/62; TEMP 97.8
--- NOTE | 2017-06-26 09:49 | PT AM DAY ---
Diagnosis : Right Total Knee Arthroplasty AM - Physical Therapy S: The patient reports she is very apprehensive about going home, stating she is not quite trusting her knee at this time. O: Today's therapy started after the completion of occupational therapy. The patient received an application of moist heat pack x20 minutes including set up to the right knee. She performed therapeutic exercises and functional activities including quad sets, heel slides, straight leg raises, short arc quads, hip abduction/adduction, sit to stands, long arc quads, boxes on the #3 box. The patient was able to ambulate with walker, gait belt, and verbal cues for propre heel/toe placement on the way to the elevator. We then utilized the wheelchair the rest of the way to her room. The patient also received manual therapy of tibial femoral and patellofemoral joint mobilization and passive stretching. The patient was able to tolerate 0 to 90 degrees. A: The patient is unable to ambulate with the correct heel/toe gait pattern. She requires verbal and tactile cues to perform activities properly. At this time the patient is more limited due to cognition than physical impairments. We discussed this in care rounds and there is the possibility the patient may be placed on swingbed. P: Continue seeing patient BID during the week and one time per day over the weekend for transfers, ambulation, and range of motion/strengthening exercises. MTDD
--- NOTE | 2017-06-26 10:14 | OT AM DAY ---
Diagnosis : Right Total Knee Arthroplasty AM - Occupational Therapy S: The patient reports she is still struggling a little bit with dressing herself. She is a little bit worried about going home. She expresses difficulty with her balance and does not want to fall when she returns home. The patient reports that during dressing task it was a little bit difficult using the sock aide. O: The therapist worked with the patient on dressing tasks x45 minutes including dressing lower extremities with the senior sales assistant. She needed cues to dress her right leg first. She needed min assist to contact guard assist to pull pants to waist and still demonstrated some slight balance difficulties. The patient was able to doff socks using senior sales assistant with verbal cues and min assist to start this task. She still starts doffing her socks at the front of her foot vs. the posterior part of her foot but was able to doff them after initial verbal cueing. The patient was able to dress upper extremities independently after set up. The patient completed a toilet transfer including walking to the toilet, turning at the toilet, and doffing pants to knees with min assist. She required cues to sit down safely and required min assist to stand up to don pants to waist. She was independent with toilet hygiene. A: During dressing tasks the patient had difficulty putting right leg on floor; she had difficulty with bull bend of knee. She was at approximately 40- 50 degrees of knee flexion and had difficulty getting her knee to floor when completing dressing tasks today. P: Continue seeing patient BID during the week and one time per day over the weekend for upper extremity strengthening, ADLs, and overall functional mobility. DAT
--- NOTE | 2017-06-26 10:21 | OT PM DAY ---
Diagnosis : Right Total Knee Arthroplasty PM - Occupational Therapy S: The patient reports she would like to try a shower. O: Today the therapist worked on the patient's independence with showering task and functional transfers. This included the patient walking to shower area with stand by assist. She needed min assist to doff pants. She used the fitness teacher to doff socks. She improved with this ability and was able to do this independently. The patient doffed shirt independently. The patient then worked on showering task. She needed min assist throughout the shower to complete washing self. She did use a shower chair along with grab bars to stand for safety. The patient was able to dry 80% of her body; she was not able to dry her feet or her back and needed assistance for this. The patient then sat in chair and worked on dressing task including donning shorts and socks. The patient had more difficulty this afternoon, more than likely because she was still slightly damp from the shower. She needed min assist with lower extremity dressing. The patient then walked out to the mat table, but as soon as we got to the mat table she had to use the restroom again. We walked back into the bathroom and the patient needed min assist secondary to balance difficulties in order to doff pants to knees. She was able to complete toilet hygiene independently and then donned shorts to waist line with contact guard assist. The patient then walked back to mat table. A: The therapist worked with the patient x60 minutes on showering, dressing , and toileting tasks. She still requires assistance with these tasks. P: Continue seeing patient BID during the week and one time per day over the weekend until discharge. The patient will more than likely go to swingbed tomorrow morning to continue to work on rehabilitation and independence. DAT
== END 2017-06-24 14:01 | disposition swing bed (61) | DRG 470 ==
LOC: OPS 10:13 → MED/SURG 18:04
PROVIDERS: ADMIT Orthopaedic Surgery; ATTEND Orthopaedic Surgery